=== PATIENT | female | born 1955 | race Caucasian/White ===

== ENCOUNTER 2016-11-08 13:36 | Emergency (ER) | payer MEDICARE ==
[~2016-11-08] VITALS: Ht 160 cm; Wt 82.2 kg
[2016-11-08 13:37] VITALS: BP 144/79; PULSE 88; RESP 20; TEMP 97.8; O2SAT 95
--- NOTE | 2016-11-08 14:35 | PD ---
HPI Chief Complaint: Chest Pain Time Seen by Provider: 14:35 Travel History International Travel<30 days: No Contact w/Intl Traveler<30days: No Traveled to known affect area: No History of Present Illness HPI 60-year-old female with history of COPD and hypothyroidism and chronic pain presents to the emergency department for evaluation of epigastric pain that bands around her abdomen with a sharp stabbing her back. Patient states a few weeks back she was diagnosed with bronchitis in [place]. She was started on antibiotic. She took this antibiotic her symptoms did not completely resolve. She contacted her doctor this week and she was started on Augmentin. She began having cough yesterday. States prior to that she was unable to cough secondary to pain. Reports no recent fever or chills. No nausea or vomiting. She has no other history to report at this time. PFSH Past Medical History COPD: Yes Thyroid Disease: Yes Social History Alcohol Use: No Tobacco Use: Yes Substance Use: No Allergies-Medications (Allergen,Severity, Reaction): Coded Allergies: No Known Allergies (Unverified , 11/08/16) Reported Meds & Prescriptions Reported Meds & Active Scripts Active Reported Advair Diskus Inh (Fluticasone-Salmeterol Inh) 250-50 Mcg/Blist Aer 1 Puff INH BID Rinse mouth after use. Amoxicillin-Clavulanate 875-125 mg Tab 875 Mg PO BID not for use in CrCl <30 mL/minute Gabapentin 300 Mg Cap 300 Mg PO TID B-12 (Cyanocobalamin) 2,000 Mcg Tab 2,000 Mcg PO DAILY Xanax (Alprazolam) 0.25 Mg Tab 0.25 Mg PO Q4H PRN Flexeril (Cyclobenzaprine HCl) 10 Mg Tab 10 Mg PO TID PRN Levothyroxine (Levothyroxine Sodium) 75 Mcg Tab 75 Mcg PO DAILY Valacyclovir (Valacyclovir HCl) 500 Mg Tab 500 Mg PO DAILY Cetirizine (Cetirizine HCl) 10 Mg Tab 10 Mg PO DAILY Omeprazole 20 Mg Tab 20 Mg PO DAILY Citalopram (Citalopram Hydrobromide) 20 Mg Tab 20 Mg PO DAILY Review of Systems Except as stated in HPI: all other systems reviewed are Neg Physical Exam Narrative GENERAL: Well-nourished female patient, lying in bed in no acute distress SKIN: Warm and dry. HEAD: Atraumatic. Normocephalic. EYES: Pupils equal and round. No scleral icterus. No injection or drainage. ENT: No nasal bleeding or discharge. Mucous membranes pink and moist. NECK: Trachea midline. No JVD. CARDIOVASCULAR: Regular rate and rhythm. No murmur appreciated. RESPIRATORY: No accessory muscle use. Expiratory wheeze to auscultation. Breath sounds equal bilaterally. GASTROINTESTINAL: Abdomen soft, non-tender, nondistended. Hepatic and splenic margins not palpable. MUSCULOSKELETAL: No obvious deformities. No clubbing. No cyanosis. No edema. NEUROLOGICAL: Awake and alert. No obvious cranial nerve deficits. Motor grossly within normal limits. Normal speech. PSYCHIATRIC: Appropriate mood and affect; insight and judgment normal. Data Data Last Documented VS Vital Signs Date Time Temp Pulse Resp B/P Pulse Ox O2 Delivery O2 Flow Rate FiO2 11/08/16 18:05 18 95 Room Air 11/08/16 18:05 83 108/68 11/08/16 13:37 97.8 Orders Electrocardiogram (11/08/16 14:31) Ckmb (Isoenzyme) Profile (11/08/16 14:31) Complete Blood Count With Diff (11/08/16 14:31) Comprehensive Metabolic Panel (11/08/16 14:31) D-Dimer (11/08/16 14:31) Magnesium (Mg) (11/08/16 14:31) Prothrombin Time / Inr (Pt) (11/08/16 14:31) Act Partial Throm Time (Ptt) (11/08/16 14:31) Troponin I (11/08/16 14:31) Chest, Single Ap (11/08/16 14:31) Lipase (11/08/16 14:45) Labs Laboratory Tests Test 11/08/16 14:32 White Blood Count 10.2 TH/MM3 Red Blood Count 4.71 MIL/MM3 Hemoglobin 13.9 GM/DL Hematocrit 41.4 % Mean Corpuscular Volume 88.0 FL Mean Corpuscular Hemoglobin 29.5 PG Mean Corpuscular Hemoglobin 33.5 % Concent Red Cell Distribution Width 14.2 % Platelet Count 315 TH/MM3 Mean Platelet Volume 8.5 FL Neutrophils (%) (Auto) 69.1 % Lymphocytes (%) (Auto) 22.4 % Monocytes (%) (Auto) 6.6 % Eosinophils (%) (Auto) 1.4 % Basophils (%) (Auto) 0.5 % Neutrophils # (Auto) 7.1 TH/MM3 Lymphocytes # (Auto) 2.3 TH/MM3 Monocytes # (Auto) 0.7 TH/MM3 Eosinophils # (Auto) 0.1 TH/MM3 Basophils # (Auto) 0.0 TH/MM3 CBC Comment DIFF FINAL Differential Comment Prothrombin Time 9.9 SEC Prothromb Time International 0.9 RATIO Ratio Activated Partial 30.0 SEC Thromboplast Time D-Dimer Quantitative (PE/DVT) 0.36 MG/L FEU Sodium Level 138 MEQ/L Potassium Level 3.8 MEQ/L Chloride Level 105 MEQ/L Carbon Dioxide Level 26.6 MEQ/L Anion Gap 6 MEQ/L Blood Urea Nitrogen 7 MG/DL Creatinine 0.70 MG/DL Estimat Glomerular Filtration 85 ML/MIN Rate Random Glucose 94 MG/DL Calcium Level 9.2 MG/DL Magnesium Level 2.0 MG/DL Total Bilirubin 0.4 MG/DL Aspartate Amino Transf 11 U/L (AST/SGOT) Alanine Aminotransferase 17 U/L (ALT/SGPT) Alkaline Phosphatase 139 U/L Total Creatine Kinase 39 U/L Troponin I LESS THAN 0.02 NG/ML Total Protein 7.2 GM/DL Albumin 3.6 GM/DL Lipase 107 U/L MDM Medical Decision Making Medical Screen Exam Complete: Yes Emergency Medical Condition: Yes Medical Record Reviewed: Yes Differential Diagnosis Pancreatitis versus bronchitis versus pneumonia versus ACS versus PE Narrative Course 60-year-old female presents to emergency department for evaluation. Workup is initiated at triage. Once a medical bed becomes available, patient will be transferred and care assumed by that provider. Condition: Stable Ange Waddell Nov 08, 2016 14:35
[2016-11-08 15:04] LABS: AUTOMATED NEUTROPHIL # 7.1 TH/MM3 (1.8-7.7); BASOPHIL % 0.5 % (0.0-2.0); EOSINOPHIL # 0.1 TH/MM3 (0-0.4); EOSINOPHIL % 1.4 % (0.0-4.0); HEMATOCRIT 41.4 % (35.0-46.0); HEMO FLAGS DIFF FINAL; LYMPH % 22.4 % (9.0-44.0); LYMPHOCYTE # 2.3 TH/MM3 (1.0-4.8); MEAN CORPUSCULAR HEMOGLOBIN 29.5 PG (27.0-34.0); MEAN CORPUSCULAR HGB CONC 33.5 % (32.0-36.0); MONO % 6.6 % (0.0-8.0); NEUT % 69.1 % (16.0-70.0); PLATELET COUNT 315 TH/MM3 (150-450); RED BLOOD COUNT 4.71 MIL/MM3 (4.00-5.30); RED CELL DISTRIBUTION WIDTH 14.2 % (11.6-17.2); WHITE BLOOD COUNT 10.2 TH/MM3 (4.0-11.0)
[2016-11-08 15:15] LABS: INTERNATIONAL NORMALIZED RATIO 0.9 RATIO; PROTHROMBIN TIME - PATIENT 9.9 SEC (9.8-11.6)
--- NOTE | 2016-11-08 15:17 | RADRPT ---
EXAM DATE/TIME: 11/08/2016 14:58 [facility] COMPARISON: No previous studies available for comparison. INDICATIONS : Chest pain MEDICAL HISTORY : None. SURGICAL HISTORY : None. ENCOUNTER: Initial ACUITY: 4 - 6 days PAIN SCORE: 4/10 LOCATION: chest FINDINGS: A single view of the chest demonstrates the lungs to be symmetrically aerated without evidence of mas s, infiltrate or effusion. The cardiomediastinal contours are unremarkable. Osseous structures are intact. CONCLUSION: No acute disease. Marty Merchant MD on November 08, 2016 at 15:15 Board Certified Radiologist. This report was verified electronically.
[2016-11-08 15:22] LABS: ALT (GPT) 17 U/L (10-53); ANION GAP 6 MEQ/L (5-15); AST (GOT) 11 U/L (15-37); BICARBONATE 26.6 MEQ/L (21.0-32.0); BLOOD UREA NITROGEN 7 MG/DL (7-18); CHLORIDE 105 MEQ/L (98-107); GLOMERULAR FILTRATION RATE 85 ML/MIN (>89); POTASSIUM 3.8 MEQ/L (3.5-5.1); SODIUM (NA) 138 MEQ/L (136-145)
[2016-11-08 15:25] LABS: ALKALINE PHOSPHATASE 139 U/L (45-117); TOTAL BILIRUBIN ADULT 0.4 MG/DL (0.2-1.0)
[2016-11-08 15:41] LABS: CREATINE KINASE 39 U/L (26-192)
[2016-11-08 18:05] VITALS: BP 108/68; PULSE 83; RESP 18; O2SAT 95
[2016-11-08] MEDS ORDERED: B-122000 PO (18:55)
[2016-11-08] MEDS ORDERED: CETI10 PO (18:55)
[2016-11-08] MEDS ORDERED: ADVA250A INH (18:55)
[2016-11-08] MEDS ORDERED: CITA20TA4 PO (18:55)
[2016-11-08] MEDS ORDERED: VALA500T PO (18:55)
[2016-11-08] MEDS ORDERED: OMEP20TA PO (18:55)
[2016-11-08] MEDS ORDERED: AMOX875T2 PO (18:55)
[2016-11-08] MEDS ORDERED: LEVO75TA3 PO (18:55)
[2016-11-08] MEDS ORDERED: GABA300C5 PO (18:55)
[2016-11-08] MEDS ORDERED: ALPR.25 PO (18:55)
[2016-11-08] MEDS ORDERED: CYCL1TAB29 PO (18:55)
--- NOTE | 2016-11-08 19:13 | PD ---
HPI Chief Complaint: Chest Pain Time Seen by Provider: 18:09 Travel History International Travel<30 days: No Contact w/Intl Traveler<30days: No Traveled to known affect area: No History of Present Illness HPI 60-year-old female came to the emergency room with history of significant back pain that is coming to the front of her chest bilaterally. She says this has been going on for past 3 days. She relates this pain to being walking a lot 3 days ago when they were trying to check into a hotel room. They were given the runaround the entire day and she was up and walking with first of back and forth many times during these hours. She started having lower hip pain bilaterally by the end of the day and the next morning the pain had gone from the lower back all the way to her upper back and coming to the front of her chest. Every little movement caused the pain to worsen. Patient called her primary care yesterday since [place] is [place] since she thought she might be developing a bronchitis. He prescribed her Augmentin over the phone which patient has started to take. She also took a stool softener since she thought this could be from constipation. However none of those remedies caused the pain to alleviate. She decided to come to the emergency room. She was seen by the provider in triage earlier who had ordered blood test and chest x- ray. By the time she came inside and I saw her the test results were back and they were all within normal limits. There was a d-dimer sent as well which was within normal limits. Vital signs are stable. Patient does not appear to be in any distress. [facility] Past Medical History Narrative Medical List of her past medical, social, surgical and family history is reviewed from the nursing note. COPD: Yes Thyroid Disease: Yes Social History Alcohol Use: No Tobacco Use: Yes Substance Use: No Allergies-Medications (Allergen,Severity, Reaction): Coded Allergies: No Known Allergies (Unverified , 11/08/16) Comments No known allergies. Reported Meds & Prescriptions Reported Meds & Active Scripts Active Reported Advair Diskus Inh (Fluticasone-Salmeterol Inh) 250-50 Mcg/Blist Aer 1 Puff INH BID Rinse mouth after use. Amoxicillin-Clavulanate 875-125 mg Tab 875 Mg PO BID not for use in CrCl <30 mL/minute Gabapentin 300 Mg Cap 300 Mg PO TID B-12 (Cyanocobalamin) 2,000 Mcg Tab 2,000 Mcg PO DAILY Xanax (Alprazolam) 0.25 Mg Tab 0.25 Mg PO Q4H PRN Flexeril (Cyclobenzaprine HCl) 10 Mg Tab 10 Mg PO TID PRN Levothyroxine (Levothyroxine Sodium) 75 Mcg Tab 75 Mcg PO DAILY Valacyclovir (Valacyclovir HCl) 500 Mg Tab 500 Mg PO DAILY Cetirizine (Cetirizine HCl) 10 Mg Tab 10 Mg PO DAILY Omeprazole 20 Mg Tab 20 Mg PO DAILY Citalopram (Citalopram Hydrobromide) 20 Mg Tab 20 Mg PO DAILY Narrative Medication List of her home medications reviewed from the nursing note. Review of Systems Except as stated in HPI: all other systems reviewed are Neg Physical Exam Narrative GENERAL: Awake, alert, no obvious distress SKIN: Warm and dry. HEAD: Atraumatic. Normocephalic. EYES: Pupils equal and round. No scleral icterus. No injection or drainage. ENT: No nasal bleeding or discharge. Mucous membranes pink and moist. NECK: Trachea midline. No JVD. CARDIOVASCULAR: Regular rate and rhythm. No murmur appreciated. RESPIRATORY: No accessory muscle use. Clear to auscultation. Breath sounds equal bilaterally. GASTROINTESTINAL: Abdomen soft, non-tender, nondistended. Hepatic and splenic margins not palpable. MUSCULOSKELETAL: No obvious deformities. No clubbing. No cyanosis. No edema. Paraspinal muscle spasm. Worsening pain when she goes to sit up or lays back on the stretcher. NEUROLOGICAL: Awake and alert. No obvious cranial nerve deficits. Motor grossly within normal limits. Normal speech. PSYCHIATRIC: Appropriate mood and affect; insight and judgment normal. Data Data Last Documented VS Vital Signs Date Time Temp Pulse Resp B/P Pulse Ox O2 Delivery O2 Flow Rate FiO2 11/08/16 18:05 18 95 Room Air 11/08/16 18:05 83 108/68 11/08/16 13:37 97.8 Orders Electrocardiogram (11/08/16 14:31) Ckmb (Isoenzyme) Profile (11/08/16 14:31) Complete Blood Count With Diff (11/08/16 14:31) Comprehensive Metabolic Panel (11/08/16 14:31) D-Dimer (11/08/16 14:31) Magnesium (Mg) (11/08/16 14:31) Prothrombin Time / Inr (Pt) (11/08/16 14:31) Act Partial Throm Time (Ptt) (11/08/16 14:31) Troponin I (11/08/16 14:31) Chest, Single Ap (11/08/16 14:31) Lipase (11/08/16 14:45) Labs Laboratory Tests Test 11/08/16 14:32 White Blood Count 10.2 TH/MM3 Red Blood Count 4.71 MIL/MM3 Hemoglobin 13.9 GM/DL Hematocrit 41.4 % Mean Corpuscular Volume 88.0 FL Mean Corpuscular Hemoglobin 29.5 PG Mean Corpuscular Hemoglobin 33.5 % Concent Red Cell Distribution Width 14.2 % Platelet Count 315 TH/MM3 Mean Platelet Volume 8.5 FL Neutrophils (%) (Auto) 69.1 % Lymphocytes (%) (Auto) 22.4 % Monocytes (%) (Auto) 6.6 % Eosinophils (%) (Auto) 1.4 % Basophils (%) (Auto) 0.5 % Neutrophils # (Auto) 7.1 TH/MM3 Lymphocytes # (Auto) 2.3 TH/MM3 Monocytes # (Auto) 0.7 TH/MM3 Eosinophils # (Auto) 0.1 TH/MM3 Basophils # (Auto) 0.0 TH/MM3 CBC Comment DIFF FINAL Differential Comment Prothrombin Time 9.9 SEC Prothromb Time International 0.9 RATIO Ratio Activated Partial 30.0 SEC Thromboplast Time D-Dimer Quantitative (PE/DVT) 0.36 MG/L FEU Sodium Level 138 MEQ/L Potassium Level 3.8 MEQ/L Chloride Level 105 MEQ/L Carbon Dioxide Level 26.6 MEQ/L Anion Gap 6 MEQ/L Blood Urea Nitrogen 7 MG/DL Creatinine 0.70 MG/DL Estimat Glomerular Filtration 85 ML/MIN Rate Random Glucose 94 MG/DL Calcium Level 9.2 MG/DL Magnesium Level 2.0 MG/DL Total Bilirubin 0.4 MG/DL Aspartate Amino Transf 11 U/L (AST/SGOT) Alanine Aminotransferase 17 U/L (ALT/SGPT) Alkaline Phosphatase 139 U/L Total Creatine Kinase 39 U/L Troponin I LESS THAN 0.02 NG/ML Total Protein 7.2 GM/DL Albumin 3.6 GM/DL Lipase 107 U/L [facility] Medical Decision Making Medical Screen Exam Complete: Yes Emergency Medical Condition: Yes Medical Record Reviewed: Yes Interpretation(s) Twelve-lead EKG was reviewed by me. Normal sinus rhythm, normal axis, nonspecific ST-T wave changes. Rate of 76 bpm. Differential Diagnosis ACS, musculoskeletal pain Narrative Course 7:19 PM after listening to the story and exam this is highly suspicious for musculoskeletal pain/muscle spasm. Patient has history of muscle spasm and she is on Flexeril when necessary. I have asked her to take her Flexeril, Xanax and ibuprofen tonight before going to bed. I'm comfortable discharging her home. Patient is comfortable going home as well. I've asked her to stop taking the Augmentin since physical exam on auscultation as well as chest x-ray were within normal limits. Procedures EKG Prior to Arrival: Yes Diagnosis Primary Impression: Musculoskeletal pain Additional Impression: Needs smoking cessation education Referrals: Primary Care Physician 1 week Additional Instructions: Please take your Flexeril, Xanax one pill each and 2 pills of ibuprofen before you go to bed tonight. You can repeat that dose again tomorrow night. Warm shower/warm bath would help relax the muscles as well. Take it easy. Do not lift any heavy weights or long distance walking. Please follow-up with your primary care when you go back home. Return to the ER if conditions worsen or any other new concerns. There is no need to continue taking the Augmentin. Please strongly consider quitting smoking. Med/Other Pt SpecificInfo: No Change to Meds Disposition: 01 DISCHARGE HOME Condition: Stable Evie Schaefer MD Nov 08, 2016 19:13
--- NOTE | 2016-11-09 23:33 | EKG ---
Date Performed: 11/08/2016 Time Performed: 14:36:45 PTAGE: 60 years EKG: Sinus rhythm INCOMPLETE RIGHT BUNDLE BRANCH BLOCK BORDERLINE ECG INTERPRETATION BASED ON A DEFAULT AGE OF 38 YEAR S NO PREVIOUS TRACING DOCTOR: Fatoumata Gimenez Interpretating Date/Time 11/09/2016 23:30:43
== END 2016-11-08 20:20 | disposition home or self-care (01) ==
LOC: NEPA 13:36
DX: M79.1 Myalgia (principal); R94.31 Abnormal electrocardiogram [ECG] [EKG]; J44.9 Chronic obstructive pulmonary disease, unspecified; E03.9 Hypothyroidism, unspecified; R05 Cough; Z72.0 Tobacco use
CPT/HCPCS: 71010; 80053; 82550; 83690; 83735; 84484; 85025; 85379; 85610; 85730; 93005